=== PATIENT | female | born 2000 | race Caucasian/White ===

== ENCOUNTER 2023-02-19 12:48 | Outpatient (CLI) | payer OTHER | END 2023-02-19 16:11 | disposition home or self-care (01) | LOC: OBS/DEL 12:48 | PROVIDERS: ATTEND Specialist | DX: O47.02 False labor before 37 completed weeks of gestation, second trimester (principal); Z3A.27 27 weeks gestation of pregnancy; Z91.013 Allergy to seafood ==

== ENCOUNTER 2023-04-07 06:48 | Inpatient (IN) | payer OTHER ==
[~2023-04-07] VITALS: Ht 160 cm; Wt 76.2 kg
[2023-04-07] MEDS ORDERED: OBSTETRIX ONE 38-1-2 (07:30)
== END 2023-04-08 18:09 | disposition home or self-care (01) | DRG 832 ==
LOC: LDR 06:48
PROVIDERS: ADMIT Specialist; ATTEND Specialist
PROC: 4A1HXCZ Monitoring of Products of Conception, Cardiac Rate, External Approach (ICD-10-PCS; principal; 2023-04-07)
PROC: BY4FZZZ Ultrasonography of Third Trimester, Single Fetus (ICD-10-PCS; 2023-04-07)
PROC: BU4CZZZ Ultrasonography of Uterus and Ovaries (ICD-10-PCS; 2023-04-07)
PROC: BT43ZZZ Ultrasonography of Bilateral Kidneys (ICD-10-PCS; 2023-04-07)
PROC: BT43ZZZ Ultrasonography of Bilateral Kidneys (ICD-10-PCS; 2023-04-08)
DX: O26.893 Other specified pregnancy related conditions, third trimester (principal); N13.2 Hydronephrosis with renal and ureteral calculous obstruction; O26.843 Uterine size-date discrepancy, third trimester; O36.8130 Decreased fetal movements, third trimester, not applicable or unspecified; O60.03 Preterm labor without delivery, third trimester; Z3A.33 33 weeks gestation of pregnancy; Z20.822 Contact with and (suspected) exposure to COVID-19

== ENCOUNTER 2023-05-10 14:41 | Outpatient (CLI) | payer OTHER ==
[~2023-05-10 14:41] MED LIST: OBSTETRIX ONE 38-1-2
== END 2023-05-10 19:14 | disposition home or self-care (01) ==
LOC: OBS/DEL 14:41
PROVIDERS: ATTEND Specialist
DX: O47.1 False labor at or after 37 completed weeks of gestation (principal); Z3A.38 38 weeks gestation of pregnancy; Z91.013 Allergy to seafood; Z20.822 Contact with and (suspected) exposure to COVID-19